=== PATIENT | female | born 1980 ===

== ENCOUNTER 2017-07-07 10:41 | Inpatient (IN) | payer OTHER ==
[2017-07-07] MEDS ORDERED: PRENATABS RX T1 EACH PO (12:25)
== END 2017-07-26 16:12 | DRG 766 ==
LOC: OB/GYN 07-24 07:00
PROVIDERS: Obstetrics & Gynecology
PROC: 0UL70ZZ Occlusion of Bilateral Fallopian Tubes, Open Approach (ICD-10-PCS; 2017-07-24)
PROC: 4A1HXCZ Monitoring of Products of Conception, Cardiac Rate, External Approach (ICD-10-PCS; 2017-07-24)
PROC: 10D00Z1 Extraction of Products of Conception, Low, Open Approach (ICD-10-PCS; principal; 2017-07-24 07:00)
DX: O34.211 Maternal care for low transverse scar from previous cesarean delivery (principal); Z37.0 Single live birth; Z3A.36 36 weeks gestation of pregnancy; Z30.2 Encounter for sterilization